=== PATIENT | male | born 1955 | race Caucasian/White ===

== ENCOUNTER 2019-07-12 07:38 | Outpatient (CLI) | payer OTHER, SELFPAY ==
--- NOTE | ~2019-07-12 | MR_ITS ---
EXAMINATION: MR foot RT wo/w con DATE: 07/12/2019 09:55 INDICATION: Right foot cellulitis and ulcer TECHNIQUE: Magnetic resonance imaging (MRI) of the right fore/mid foot was performed without and with 20 mL Multihance intravenous contrast. Sequences included axial, sagittal and coronal T1-weighted FS E, axial, sagittal and coronal T2-weighted FS FSE, axial T1-weighted FS FSE and postcontrast axial an d coronal T1-weighted FS FSE. COMPARISON: Right foot radiographs dated 10/08/2015 FINDINGS: The second toe is been indicated the level of the metatarsophalangeal joint line. Dorsal dislocation at the third metatarsophalangeal joint. The flexor tendons for the third toe are subluxed along the m edial side of the head of the third metatarsal. Moderate hallux valgus with anemia and moderate to se pranay osteoarthritis at the first metatarsophalangeal joint with mild reactive edema, cystic and hyper trophic change at the medial head of the first metatarsal. There are couple tiny heterotopic ossicles at the distal aspect of the stretched appearing medial collateral ligament. There is heterotopic oss ification along the lateral cortex of the distal first metatarsal diaphysis. Bone marrow signal is ot herwise normal with no abnormally enhancing lesions or geographic loss of T1 fat signal to suggest os teomyelitis or other pathologic marrow replacing process. Moderate osteoarthritis at the first interp halangeal joint. Mild osteoarthritis at a few of the remaining metatarsophalangeal and interphalangea l joints. Soft tissue swelling underlying a skin ulceration which overlies the dorsal medial aspect o f the head of the first metatarsal. Physiologic amount fluid in the joint spaces. No joint effusions or abscess. Prominent fatty atrophy of the intrinsic musculature of the foot. IMPRESSION: 1. No abscess or concerning marrow signal changes to suggest osteomyelitis. 2. Dorsal dislocation at the third metatarsophalangeal joint and amputation of the second toe. 3. Moderate hallux valgus with bunion and moderate to severe osteoarthritis at the first metatarsopha langeal joint. 4. Prominent fatty atrophy of the intrinsic musculature of the foot which could be seen with chronic diabetic neuropathy. Reviewed, dictated and finalized at location A. IMPRESSION: 1. No abscess or concerning marrow signal changes to suggest osteomyelitis. 2. Dorsal dislocation at the third metatarsophalangeal joint and amputation of the second toe. 3. Moderate hallux valgus with bunion and moderate to severe osteoarthritis at the first metatarsophalangeal joint. 4. Prominent fatty atrophy of the intrinsic musculature of the foot which could be seen with chronic diabetic neuropathy.
[2019-07-12 08:47] LABS: Estimated Glomerular Filt Rate > 60
== END 2019-07-12 07:39 | disposition home or self-care (01) ==
PROVIDERS: PCP Family Medicine; Visit Provider Podiatrist Foot & Ankle Surgery
DX: L97.513 Non-pressure chronic ulcer of other part of right foot with necrosis of muscle (principal); S93.124A Dislocation of metatarsophalangeal joint of right lesser toe(s), initial encounter; Z89.421 Acquired absence of other right toe(s); M20.11 Hallux valgus (acquired), right foot; M21.611 Bunion of right foot; M19.071 Primary osteoarthritis, right ankle and foot; M62.571 Muscle wasting and atrophy, not elsewhere classified, right ankle and foot
CPT/HCPCS: 36415; 73720; A9577